=== PATIENT | female | born 1945 | race Caucasian/White ===

== ENCOUNTER 2016-10-10 11:29 | Observation (INO) | payer OTHER ==
--- NOTE | ~2016-10-10 | OR ---
Unit #: [id number] #: [id number] Patient: JAILYN DODSON [id number] [address] [place], [place] [address] [id number] I MR#: [id number] NAME: JAILYN DODSON ROOM: 329 Date of Procedure: 10/12/2016 Admission Date: 10/10/2016 Surgeon: Nii Rangel M.D. : 1945 Attending Physician: Isaiah Snider M.D. Primary Care Physician: Mariah Naranjo M.D. OPERATIVE REPORT PRIMARY CARE PHYSICIAN Mariah Naranjo M.D. PREOPERATIVE DIAGNOSES Nausea, vomiting, diarrhea, and abdominal pain as well as hematochezia. PROCEDURE PERFORMED Colonoscopy up to cecum and terminal ileum. POSTOPERATIVE DIAGNOSES The patient had a diminutive polyp in the proximal descending colon. This was removed using snare polypectomy; however, polyp was too small and was lost in suction. Otherwise, examination was normal up to cecum and terminal ileum. No diverticulosis nor any hemorrhoids were seen. The patient did not have any angiodysplasias. RECOMMENDATIONS The most likely etiology of the patient's presentation is indeed resolved gastroenteritis. No further intervention is indicated. She can be discharged home from GI standpoint on regular diet. SEDATION USED MAC. DESCRIPTION OF PROCEDURE Following detailed explanation of the potential risks and complications of a colonoscopy, namely perforation, bleeding, and complications related to sedation, the patient was brought to GI lab and laid in the left lateral decubitus position. A digital rectal examination was performed, which was normal. Lubricated tip of the Olympus video colonoscope was inserted through the anus and advanced under direct vision. The scope was advanced and passed up to sigmoid into descending colon. No diverticula were noted in this area. The scope tip was then navigated all the way up to cecum with visualization of the ileocecal valve and the appendiceal orifice. Preparation was excellent with good visualization and photodocumentation was obtained. Last few inches of terminal ileum also visualized after intubation of the ileocecal valve and appeared normal. Successive segments of the colonic mucosa were examined upon withdrawal and appeared unremarkable except for a single diminutive sessile polyp in the proximal descending colon. This was removed using snare polypectomy; however, polyp was lost in suction and could not be retrieved. No additional polyps noted. The patient did not have any mucosal abnormalities Unit #: [id number] #: [id number] Patient: JAILYN DODSON whatsoever. No diverticulosis was seen and no hemorrhoids were seen. The scope was then withdrawn. The patient returned to the recovery area. She tolerated the procedure without any postprocedure complications. Dictated by... Aneta Turpin/car TD: 10/12/2016 22:11 JOB #: [id number] CC: Renata Stewart M.D. OPERATIVE REPORT Page 1 of 1 X Nii Rangel MD X PROCEDURE OPERATIVE NOTE
--- NOTE | ~2016-10-10 | CT4 ---
[facility] A Service of [facility] RADIOLOGY TEXT RESULTS PATIENT: JAILYN DODSON LOCATION: [facility] 329- : 47 UNIT #: [id number] AGE: [address]: Isaiah Snider MD SEX: F ORDER DR: [id number] [facility] [address] [facility]. [place], [place] [address] [id number] I MR#: [id number] Acc #: [id number] NAME: JAILYN DODSON : 1945 SEX: F STUDY DATE/TIME: 10/10/2016 11:53 UNIT: C3A PCU ROOM: 329 STUDY DESCRIPTION: CT Abd and Pelv Wo Cont Attending Physician: Renata Stewart M.D. Ordering Physician: Antolin Whitlock M.D. Primary Care Physician: Mariah Naranjo M.D. MEDICAL IMAGING REPORT This report is preliminary unless electronic signature is present EXAM CT of the abdomen and pelvis without contrast INDICATION Diffuse abdominal pain, vomiting, diarrhea with blood in stool today. TECHNIQUE Axial CT images were obtained from the dome of the diaphragm through the symphysis pubis. No oral or intravenous contrast material was administered. This CT examination was performed with one or more of the following radiation dose reduction techniques: automatic exposure control, adjustment of mA and/or kV according to patient size, and iterative reconstruction. FINDINGS Images through the lung bases demonstrate some right basilar scarring and coronary artery calcifications. Patient is noted to have hepatomegaly with the liver measuring up to 16.3 cm in craniocaudal dimensions. The spleen contains some calcified granulomata. Stomach and proximal small bowel are within normal limits. Adrenal glands and kidneys appear unremarkable. Patient does have cholelithiasis. I do not see any definite gallbladder wall thickening or pericholecystic fluid to suggest acute cholecystitis. Pancreas is atrophic. There is no evidence of mechanical bowel obstruction. Uterus is surgically absent. Urinary bladder appears unremarkable. I can see the appendix and it is within normal limits. Review of bony windows demonstrates degenerative changes involving the lumbosacral spine, as well as changes of prior posterior lumbar spinal fusion. IMPRESSION [facility] A Service of [facility] RADIOLOGY TEXT RESULTS PATIENT: JAILYN DODSON LOCATION: [facility] 329-01 : 47 UNIT #: [id number] AGE: [address]: Isaiah Snider MD SEX: F ORDER DR: 1. Mild hepatomegaly with the liver measuring up to 16.3 cm in craniocaudal dimensions. 2. Cholelithiasis without convincing evidence of acute cholecystitis. 3. Changes of prior hysterectomy. 4. Appendix is visualized and is felt to be within normal limits. Dictated by... Lizbeth Carter M.D. THIS IS AN ELECTRONICALLY VERIFIED REPORT Lizbeth Carter M.D. at 10/13/2016 1:00 PM JESSICA/sangita TD: 10/11/2016 07:20 JOB #: [id number] MEDICAL IMAGING REPORT Page 1 of 1 COPY
--- NOTE | ~2016-10-10 | CO ---
Unit #: [id number] #: [id number] Patient: JAILYN DODSON [id number] [address] [address] [id number] I MR#: [id number] NAME: JAILYN DODSON ROOM: 329 Age: 71 Sex: F Admission Date: 10/10/2016 : 1945 Attending Physician: Renata Stewart M.D. Primary Care Physician: Mariah Naranjo M.D. Consultation Date: 10/11/2016 CONSULTATION REPORT PRIMARY CARE PHYSICIAN Mariah Naranjo M.D. REASON FOR CONSULTATION Nausea, vomiting, abdominal pain, diarrhea, and substantial hematochezia. HISTORY OF PRESENT ILLNESS Ms. Dodson is a 71-year-old white female, who is on long-term anticoagulation with Coumadin because of DVTs. The patient apparently got some fish they got from a restaurant and both she and her ate the fish and coleslaw. She apparently got significant nausea, vomiting, and diarrhea subsequently that has since continued. In addition, she had copious amounts of bright red blood per rectum and left-sided abdominal pain. Her apparently did not have any symptoms. She is still feeling nauseated, although the vomiting has stopped. There is no history of fever, chills, or rigors. No history of skin rash. PAST MEDICAL HISTORY Significant for history of DVTs, on anticoagulation with Coumadin; gastroesophageal reflux; anxiety; depression; history of MRSA infection following the knee surgery; hypertension; hyperlipidemia; and hypothyroidism. PAST SURGICAL HISTORY Included hysterectomy, lumbar fusion, vein stripping, left lower extremity surgery, and left knee surgery. Last upper endoscopy and colonoscopy was about 7 years ago. MEDICATIONS At home included warfarin as well as baclofen, levothyroxine, potassium, gabapentin, celecoxib, Advair, Zyrtec, aspirin, lisinopril, rosuvastatin, and hydrochlorothiazide. ALLERGIES She is allergic to tramadol and morphine. SOCIAL HISTORY The patient does not smoke or drink alcohol. Walks around with a cane. She lives with her . FAMILY HISTORY Mother having lung cancer. No family history of colon or pancreatic cancer or liver disease. Unit #: [id number] #: [id number] Patient: JAILYN DODSON REVIEW OF SYSTEMS Detailed review of organ systems does not reveal any recent weight loss. No history of fever, chills, or rigors. No history of headache, seizure, chest pain, or syncope. No history of cough, expectoration, or hemoptysis. No history of dysuria, hematuria, or pyuria. No history of focal seizures or extremity weakness. No history of skin rash, aphthous ulcer in the mouth, reactive arthritis. Rest of the review of organ system is unremarkable. PHYSICAL EXAMINATION GENERAL: She is alert and oriented, and appears comfortable. VITAL SIGNS: Stable with a temperature of 98.0, pulse 87 per minute, respiratory rate is 18, and blood pressure is 137/68. She weighs 240 pounds and this is close to her baseline weight. HEENT: She has no pallor, icterus, lymphadenopathy, or peripheral edema. CARDIOVASCULAR: Reveals normal heart sounds. No murmurs on auscultation. LUNGS: Reveal normal breath sounds. Good air entry. ABDOMEN: Soft, nontender, and obese. Liver and spleen are not palpable. Bowel sounds are normal. No area of rigidity, rebound, or guarding is felt. Hernial sites are also normal. DIAGNOSTIC STUDIES LABORATORY RESULTS: Lab evaluation shows a BUN of 23 and creatinine of 2.4, baseline creatinine is 1.0. CO2 is 20. Albumin and LFTs are normal. Blood glucose is 155. INR is 2.3. CBC shows a normal white count and platelet count and hemoglobin. IMAGING STUDIES: A CT scan of the abdomen is unremarkable. CLINICAL IMPRESSION The differential diagnosis here includes a gastroenteritis or food poisoning after eating bad fish versus ischemic colitis. The latter in view of substantial hematochezia and cramping in the lower left- sided abdomen. A diagnostic upper endoscopy is warranted to be done later today. If the upper endoscopy does not show any significant abnormalities, a colonoscopy performed tomorrow morning. The pros and cons of the procedure and potential risks and complications were discussed with the patient and she was reassured. Thank you for asking me to see this pleasant woman. I appreciate the consult. Dictated by.Aneta Walter/car TD: 10/11/2016 11:23 JOB #: [id number] CC: Aneta Chatman M.D. Unit #: [id number] #: [id number] Patient: JAILYN DODSON CONSULTATION REPORT Page 1 of 1 X Nii Rangel MD CONSULTATION REPORT
--- NOTE | ~2016-10-10 | DS ---
Unit #: [id number] #: [id number] Patient: JAILYN DODSON [id number] [address] [place], [place] [address] [id number] I MR#: [id number] NAME: JAILYN DODSON ROOM: 329 Age: 71 Sex: F Admission Date: 10/10/2016 : 1945 Discharge Date: 10/12/2016 Attending Physician: Isaiah Snider M.D. Primary Care Physician: Mariah Naranjo M.D. DISCHARGE SUMMARY REASON FOR ADMISSION Bright red blood per rectum, acute kidney injury, nausea, and vomiting. HISTORY OF PRESENT ILLNESS/HOSPITAL COURSE Patient is a very pleasant, 71-year-old female with underlying history of DVT, chronic anticoagulation with Coumadin, hypertension, GERD, hypothyroidism, anxiety, depression, and MRSA who presented to the emergency department for evaluation of above. She reported to have 10 bouts of nonbloody emesis as well as 5 bouts of bloody diarrhea. She was admitted after it was noted initial creatinine was elevated at 2.4 with GFR of 19. In regards to her acute kidney injury, consultation was placed to Dr. Solorzano and associates of nephrology services. She was maintained on appropriate IV fluids throughout hospital course. Today, at time of discharge, her creatinine now stands at 0.6 and likely at her baseline. Initial urinalysis was also positive; however, final urine culture did not show any acute bacterial growth. She did undergo a CT abdomen and pelvis on 10/10/2016 secondary to abdominal pain and vomiting. Final results did raise the possibility of cholelithiasis without convincing evidence of acute cholecystitis. There was no other acute process, which was noted. Subsequently, we placed consultation to Dr. Rangel of gastroenterology services. Patient initially underwent upper GI endoscopy, which showed normal findings. This was conducted on 10/11/2016. This morning, patient, on 10/12/2016, underwent colonoscopy, which showed a small polyp, which was snared, but there was no other acute process noted throughout the colon. Mild diverticulosis was noted, but there was no evidence of colitis or any other abnormality. Therefore, at this point in time, with her creatinine now being normal and GI workup is negative; patient will be discharged home in stable condition. Her hemoglobin at time of discharge is currently 11.1 and creatinine level is normal. At time of discharge, in regards to her blood pressure management, lisinopril will be discontinued. We will give her a prescription for Norvasc 5 mg p.o. every day. Her Celebrex and all other NSAID medications should be discontinued. This was reinforced with patient and she was advised to avoid all nephrotoxic medications. FINAL DISCHARGE DIAGNOSES 1. Acute kidney injury. Unit #: [id number] #: [id number] Patient: JAILYN DODSON 2. Viral gastroenteritis. 3. Intractable nausea/vomiting. 4. Abdominal pain. 5. 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 6. Hypertension. 7. Gastroesophageal reflux disease with normal esophagogastroduodenoscopy. 8. Hypothyroidism. 9. Anxiety. 10. Depression. 11. Remote history of methicillin resistant Staphylococcus aureus. DISCHARGE MEDICATIONS 1. Advair 250/50 one puff b.i.d. 2. Coumadin 5 mg p.o. every day. 3. Gabapentin 300 mg p.o. every day. 4. Zyrtec 10 mg p.o. every day. 5. Norvasc 5 mg p.o. every day. 6. Aspirin 81 mg p.o. every day. 7. Protonix 40 mg p.o. every day. 8. Potassium chloride 20 mEq p.o. every day. 9. Baclofen 20 mg p.o. b.i.d. 10. Synthroid 88 mcg p.o. every day. DISCHARGE CONDITION Stable. DISCHARGE DISPOSITION Home. DISCHARGE INSTRUCTIONS Follow up with PCP in 7-10 days. At that point in time, patient should have a repeat BMP and CBC. Dictated by... Isaiah Snider M.D. TEDDY/dai TD: 10/13/2016 08:26 JOB #: [id number] DISCHARGE SUMMARY Page 1 of 1 X Isaiah Snider MD X DISCHARGE SUMMARY
--- NOTE | ~2016-10-10 | CO ---
Unit #: [id number] #: [id number] Patient: JAILYN DODSON [id number] [address] [address] [id number] I MR#: [id number] NAME: JAILYN DODSON ROOM: 329 Age: 71 Sex: F Admission Date: 10/10/2016 : 1945 Attending Physician: Renata Stewart M.D. Primary Care Physician: Mariah Naranjo M.D. Consultation Date: 10/10/2016 CONSULTATION REPORT REASON FOR CONSULTATION Renal insufficiency. Thank you very much for asking us to see this patient in consultation. HISTORY OF PRESENT ILLNESS Ms. Jailyn Horan is a 71-year-old female, who has a history of hypertension, hypothyroidism, DVTs x2, who is on chronic Coumadin, who also has a history of arthritis on Celebrex, who presented here with several days of nausea, vomiting, abdominal pain, diarrhea, and some bloody stools. The patient was admitted and noted to have a BUN and creatinine of 23 and 2.4. Because of this, we were asked to see the patient. The patient was noted on 11/10 to have a creatinine of 0.8. She states she has never had any problems with her kidneys that she knows of. The patient is being admitted for possible GI bleed as well as abdominal pain. PAST MEDICAL HISTORY History of gastroenteritis; history of hypertension; history of hypothyroidism; history of DVT x2, on chronic Coumadin. History of knee surgery, back surgery, hysterectomy, anxiety, history of depression, history of nephrolithiasis, history of arthritis. She has a history of asthma. ALLERGIES Include tramadol. SOCIAL HISTORY She does not smoke or drink. MEDICATIONS At home included baclofen, Synthroid, lisinopril, KCl, gabapentin, Coumadin, Celebrex, Protonix, Advair, Zyrtec, aspirin. FAMILY HISTORY Noncontributory. REVIEW OF SYSTEMS She denies any fevers, chills, visual problems, sinus problems, cough, hemoptysis, sore throat, difficulty swallowing. No neck pain or neck stiffness. No chest pain, chest heaviness, or palpitations. No shortness of breath. Denies any urinary symptoms. She has occasional swelling, but none recently. She denies any recent seizures, strokes, or skin rashes or any new medication changes except for cholesterol medicine about a month Unit #: [id number] #: [id number] Patient: JAILYN DODSON. PHYSICAL EXAMINATION GENERAL: She is alert. VITAL SIGNS: Temperature is 97.6, pulse 84 to 100, blood pressure 84 to 103 over 40s to 48. HEENT: She is normocephalic and atraumatic. Pupils are equal, round, and reactive to light. Extraocular muscles are intact. Hearing appears to be normal. Mouth is clear. No erythema. No exudate. Mouth is dry. NECK: Supple. No adenopathy. CARDIAC: Has a regular rhythm without a rub. No S3 or S4. LUNGS: Has occasional wheeze on her left side, otherwise clear. ABDOMEN: Overweight. Bowel sounds positive. She has some tenderness in the epigastric area in the left lower quadrant. No sacral edema. EXTREMITIES: She has no lower extremity swelling. Her pulses are intact in lower extremities. JOINTS: No joint pain or joint swelling. SKIN: No rashes. NEUROLOGIC: Appears intact motor and sensory grossly. : Deferred. DIAGNOSTIC STUDIES LABORATORY RESULTS: Shows sodium 138, potassium 3.4, chloride is 102, bicarb is 20, BUN and creatinine of 23 and 2.4 with glucose of 155, magnesium is 1.5, calcium is 9.6. TSH is 5, INR is 2.7. Hemoglobin 14 down from 15, white count 8900, platelets 272,000. UA showed specific gravity of 1.02, 2+ protein, 2 to 5 rbc's, 25 to 50 wbc's, no bacteria. ASSESSMENT/PLAN Acute kidney injury. This is a lady who presumed to have normal kidney function, who presented here with acute renal failure certainly, probably multifactorial including volume depletion from nausea, vomiting, or diarrhea. She also may have some acute tubular necrosis secondary to decreased blood pressure. She also was on Celebrex, it could also be playing a role in renal failure. She does have some proteinuria as well and we will quantitate this. She has been on some lisinopril and certainly in the face of some volume depletion, this may also affect her to renal function. I agree with holding her TIFFANI, for now her Celebrex. We will continue IV fluids. She had a CT scan done which I am not sure what it showed yet, but we will not order renal ultrasound since the CT was done and we will follow. We will check again urine eosinophils have been ordered and check a protein to creatinine ratio, check an SPEP, check full set of electrolytes in the morning, and we will continue to follow. Currently, she is on a PPI and we will continue this for now unless her renal function continues to worsen. Dictated byAneta Bhandari/car TD: 10/11/2016 03:29 JOB #: [id number] Unit #: [id number] #: [id number] Patient: JAILYN DODSON CONSULTATION REPORT Page 1 of 1 X Oscar Solorzano MD X CONSULTATION REPORT
--- NOTE | ~2016-10-10 | HP ---
Unit #: [id number] #: [id number] Patient: JAILYN DODSON [id number] [address] [address] [id number] I MR#: [id number] NAME: JAILYN DODSON ROOM: 04754 Age: 71 Sex: F Admission Date: 10/10/2016 : 1945 Attending Physician: Renata Stewart M.D. Primary Care Physician: Mariah Naranjo M.D. HISTORY AND PHYSICAL CHIEF COMPLAINT Nausea, vomiting, and diarrhea. HISTORY OF PRESENT ILLNESS The patient is a 71-year-old female with past medical history of DVT, chronic anticoagulation with Coumadin, hypertension, GERD, hypothyroidism, anxiety, depression, MRSA, who presented to the emergency department for evaluation of the above. The patient states that she was in her usual state of health until the day prior to admission when she ate fish and slaw. Three hours later, she started having abdominal pain, vomiting and diarrhea. She reports more than 10 bouts of nonbloody emesis and around 5 bouts of bloody diarrhea. She states that she has had left-sided abdominal pain that she describes as "horrible." There are no exacerbating or alleviating factors. She has never had any similar pain. She has had chills but no documented fever. In the emergency department, initial pulse and blood pressure were 100 and 84/44 respectively. She was noted to be heme-positive. CT of the abdomen and pelvis was done and showed no acute abnormality. She is being admitted to [facility] for evaluation and further treatment. PAST MEDICAL HISTORY 1. Admission to [facility] 08/22 through 08/25/2011 for gastroenteritis and acute kidney injury. 2. Hypertension. 3. Hyperlipidemia. 4. Hypothyroidism. 5. DVT on chronic anticoagulation with Coumadin. 6. GERD. 7. Anxiety and depression. 8. History of MRSA following knee surgery. PAST SURGICAL HISTORY 1. Hysterectomy. 2. Lumbar fusion. 3. Vein stripping. 4. Left lower extremity surgery. 5. Left knee surgery. 6. EGD and colonoscopy (04/11/2010) showed small internal hemorrhoids. A single polyp in the sigmoid. EGD was completely normal. Pathology report from the that endoscopy procedure showed hyperplastic polyp and fragments of unremarkable duodenal mucosa. Unit #: [id number] #: [id number] Patient: JAILYN DODSON ALLERGIES 1. Morphine. 2. Tramadol. HOME MEDICATIONS 1. Baclofen. 2. Levothyroxine. 3. Potassium. 4. Gabapentin. 5. Warfarin. 6. Celecoxib. 7. Advair. 8. Zyrtec. 9. Aspirin. 10. Lisinopril. 11. Rosuvastatin. 12. Hydrochlorothiazide. SOCIAL HISTORY The patient lives with her . There is no tobacco or alcohol use. She walks with a cane. Her code status is FULL CODE. FAMILY HISTORY Notable for her mother having lung cancer. REVIEW OF SYSTEMS A complete review of systems is negative except as indicated in the HPI. PHYSICAL EXAMINATION VITAL SIGNS: Temperature 97.5, pulse 100, respirations 18, blood pressure 84/44, oxygen saturation 98% on room air. GENERAL: The patient is a female who is awake and alert in no acute distress. HEENT: Head is atraumatic. Mucous membranes are dry. NECK: Supple. Trachea is midline. LUNGS: Clear to auscultation bilaterally with no increased work of breathing. HEART: Regular rate and rhythm. ABDOMEN: Soft. She is tender to palpation in the left lower quadrant. Bowel sounds present in all four quadrants. RECTAL: Heme-positive per ER documentation. EXTREMITIES: Nontender with no pedal edema. NEUROLOGIC: Patient is awake and alert. She follows commands. PSYCHIATRIC: Mood and affect are normal. Patient is cooperative. SKIN OF EXAMINED AREAS: Warm and dry. DIAGNOSTIC STUDIES LABORATORY: Complete blood count notable for MCV of 78.9, hemoglobin 15. INR 2.7. Comprehensive metabolic panel notable for a potassium of 3.4, bicarb is 20, glucose 155, BUN 23, creatinine 2.4. Lipase 22. Urinalysis notable for 1+ leukocyte esterase, 2+ protein, 25-50 wbc's, no bacteria, many squamous cells. IMAGING: CT of the abdomen and pelvis shows mild hepatomegaly with cholelithiasis but no evidence of cholecystitis. ASSESSMENT Unit #: [id number] #: [id number] Patient: JAILYN DODSON The patient is a 71-year-old female with: 1. Abdominal pain. CT of the abdomen and pelvis is negative. 2. Nausea, vomiting, and diarrhea. 3. Gastrointestinal bleed with hemoglobin of 15. 4. Chronic anticoagulation with Coumadin. INR is 2.7 today. 5. History of DVT. 6. Acute kidney injury. The patient's creatinine was 0.8 on 11/26/2015, it is 2.4 today. 7. Mild hypokalemia. 8. Hypotension. The patient's initial blood pressure was 84/44. She received a 1 liter normal saline bolus and most recent blood pressure is 103/48. 9. Gastroesophageal reflux disease. 10. Hypothyroidism. 11. Anxiety and depression. 12. History of MRSA. 13. Hyperlipidemia. 14. Cholelithiasis with no evidence of cholecystitis. PLAN 1. Admit for observation to intermediate level. 2. Normal saline at 75 mL per hour. 3. Advance to clear liquid diet as tolerated. 4. Hemoglobin and hematocrit q.6 h. 5. Protonix. 6. Hold Coumadin. 7. Consult Dr. Rangel regarding GI bleed. 8. Check EKG and cardiac enzymes. 9. Urine sodium, creatinine and eosinophils. 10. Renal ultrasound. 11. Urine culture and sensitivity on urine in the lab. 12. Check CPK. 13. Strict I's and O's. 14. Hold nephrotic medications. 15. Consult Dr. Solorzano regarding acute kidney injury. 16. Replace potassium. 17. Check magnesium. 18. Monitor blood pressure closely. 19. TSH. 20. P.r.n. morphine. 21. P.r.n. Zofran. 22. Repeat labs in the morning including INR, magnesium and phosphorus. 23. Regarding code status, the patient is a FULL CODE. Dictated by Aneta Chatman/juan josé TD: 10/10/2016 16:05 JOB #: [id number] Unit #: [id number] #: [id number] Patient: JAILYN DODSON HISTORY AND PHYSICAL Page 1 of 1 X Renata Stewart MD HISTORY AND PHYSICAL
--- NOTE | ~2016-10-10 | EKG ---
PATIENT: JAILYN DODSON UNIT #: [id number] Ventricular Rate: 84 BPM Atrial Rate: 84 BPM P-R Interval: 164 ms QRS Duration: 92 ms Q-T Interval: 372 ms QTC Calculation(Bezet): 439 ms P Berg[place]: 80 degrees Calculated R Berg[place]: 81 degrees Calculated T Bergton: 107 degrees Diagnosis Line: Normal sinus rhythm Diagnosis Line: Biatrial enlargement Diagnosis Line: Nonspecific ST and T wave abnormality Diagnosis Line: Abnormal ECG Diagnosis Line: When compared with ECG of 01-MAY-2014 10:24, Diagnosis Line: Nonspecific T wave abnormality, worse in Lateral Diagnosis Line: leads Diagnosis Line: Confirmed by ALYSE ZAZUETA MD ([id number]) on Diagnosis Line: 10/14/2016 5:39:44 AM INTERPRETING MD: BIA
--- NOTE | ~2016-10-10 | US77 ---
[facility] A Service of [facility] & [facility] RADIOLOGY TEXT RESULTS PATIENT: JAILYN DODSON LOCATION: [facility] 329-01 : [birth year] UNIT #: [id number] AGE: [address]: Renata Stewart MD SEX: F ORDER DR: [id number] [facility] [address]. [place], [place] [address] [id number] I MR#: [id number] Acc #: [id number] NAME: JAILYN DODSON : 1945 SEX: F STUDY DATE/TIME: 10/10/2016 21:57 [facility] ROOM: [facility] STUDY DESCRIPTION: US Kidney Bilateral Complete Attending Physician: Renata Stewart M.D. Ordering Physician: Renata Stewart M.D. Primary Care Physician: Mariah Naranjo M.D. MEDICAL IMAGING REPORT This report is preliminary unless electronic signature is present EXAM Bilateral renal ultrasound INDICATIONS Acute kidney insufficiency GFR is 30, BUN 23 and creatinine is 1.7. FINDINGS The right kidney is 8.6 in length. There is no masses or hydronephrosis visible. The bladder is collapsed. The left kidney is 12 cm in length and appears normal. IMPRESSION Normal bilateral renal ultrasound. Dictated by... Malcolm Mazariegos M.D. THIS IS AN ELECTRONICALLY VERIFIED REPORT Malcolm Mazariegos M.D. at 10/11/2016 9:55 PM FEL/to TD: 10/11/2016 17:17 JOB #: [id number] MEDICAL IMAGING REPORT Page 1 of 1 COPY
--- NOTE | ~2016-10-10 | OR ---
Unit #: [id number] #: [id number] Patient: JAILYN DODSON [id number] [address] [place], [place] [address] [id number] MR#: [id number] NAME: JAILYN DODSON ROOM: 329 Date of Procedure: 10/11/2016 Admission Date: 10/10/2016 Surgeon: Nii Rangel M.D. : 1945 Attending Physician: Renata Stewart M.D. Primary Care Physician: Mariah Naranjo M.D. OPERATIVE REPORT PRIMARY CARE PHYSICIAN Mariah Naranjo M.D. PREOPERATIVE DIAGNOSES Nausea, vomiting, and abdominal pain. PROCEDURE PERFORMED Upper gastrointestinal endoscopy. POSTOPERATIVE DIAGNOSIS Completely normal examination up to third part of duodenum. RECOMMENDATIONS The patient will be started on clear liquid diet. A colonoscopy will be performed tomorrow in view of the fact that she has had substantial hematochezia and diarrhea, and left-sided abdominal pain. SEDATION USED MAC. DESCRIPTION OF PROCEDURE Following detailed explanation of the potential risks and complications of an upper endoscopy, namely perforation, bleeding, and complication related to sedation, the patient was brought to GI lab and laid in the left lateral decubitus position. Lubricated tip of the Olympus video upper endoscope was passed through the bite block into the proximal esophagus under direct vision. The entire esophageal mucosa was examined and appeared normal. Z-line was nicely demarcated, there being no esophagitis or hiatus hernia. The scope was then advanced into the gastric cavity and the latter was insufflated. Mucosa of the fundus, body, and antrum was examined and appeared unremarkable. Pylorus was intubated with visualization of the normal duodenal bulb and second and third part of the duodenum. Upon withdrawal and retroflexion, incisura, cardia, and greater curve were examined and no additional findings noted. The scope was then withdrawn in the distal esophagus. The entire esophageal mucosa was examined all the way up to pharynx. No additional findings noted. The patient tolerated the procedure without any postprocedure complications. Dictated by... Nii Rangel M.D. Unit #: [id number] #: [id number] Patient: JAILYN DODSON LUIS/car TD: 10/11/2016 15:19 JOB #: [id number] OPERATIVE REPORT Page 1 of 1 X Nii Rangel MD PROCEDURE OPERATIVE NOTE
[~2016-10-10 11:29] MED LIST: ADVAIR 100-501 EACH IH; ADVAIR 250-501 EACH IH; ADVAIR 2501 DISK W/D PO; ALBUTEROL17 GM; ALPRAZOLAM PO; ALPRAZOLAM0.25 MG PO; AMITRIPTYLINE H50 MG PO; AMITRYPTYLINE PO; ASPIRIN; ASPIRIN EC81 M1 PO; ASPIRIN81 M1 PO; BACLOFEN20 M1 PO; CALCIUM 500 + D1 TAB; CAPOZIDE PO; CELEBREX; CELEBREX PO; CELECOXIB200 M1 PO; CIPRO250 MG PO; CLARITIN10 MG PO; COUMADIN; COUMADIN PO; COUMADIN1 MG PO; COUMADIN4 MG PO; COUMADIN5 MG PO; COUMADIN7.5 MG PO; DARVOCET-N 1001 TAB; FISH OIL 1,0001 CAP; FLONASE 0.05% N16 G1; GABAPENTIN300 MG PO; GARLIC; HYDROCHLOROTH12.5 MG PO; HYDROCODON-ACE1 EAC7 PO; HYDROCODON-ACE1 EACH PO; HYDROCODONE; HYDROCODONE-APA1 T55 PO; HYZAAR; IRON325 ( 65 ) PO; KCL; KCL PO; LASIX; LEVOTHYROXINE88 MCG PO; LISINOPRIL-HCTZ1 T14 PO; LISINOPRIL20 MG PO; METAMUCIL0.52 G; MONTELUKAST SOD10 MG PO; NEURONTIN300 MG PO; NEXIUM; NORVASC; NORVASC PO; NYSTATIN1000 GM MC; POTASSIUM99 M3 PO; PRAVACHOL20 MG PO; PRAVASTATIN SOD20 MG PO; PROTONIX PO; RIFAMPIN300 MG PO; ROBAXIN 750750 MG PO; SIMVASTATIN10 MG PO; SINGULAIR PO; SYMBICORT INH; SYNTHROID; SYNTHROID PO; SYNTHROID0.1 MG PO; TERBINAFINE (L250 MG DOB; XANAX0.5 MG PO; ZESTORETIC 20/11 TAB PO; ZITHROMAX; ZOCOR20 MG PO; ZYRTEC; ZYRTEC10 M1 PO; ZYRTEC10 M2 PO
[2016-10-10 11:35] LABS: BASOPHIL% 0.1 % (0-2.5); EOSINOPHIL% 0.1 % (0.0-7.0); HEMATOCRIT 45.7 % (35.0-45.0); LYMPHOCYTE# 0.2 X10e3 (1.0-3.5); LYMPHOCYTE% 2.1 % (17.0-45.0); MEAN CELL VOLUME 78.9 FL (83-96); MEAN CORPUSCULAR HEMOGLOBIN 25.9 PG (28-34); MEAN CORPUSCULAR HGB CONC 32.9 g/dL (30-36); MEAN PLATELET VOLUME 7.8 FL (6.5-11.5); MONOCYTE# 0.5 X10e3 (0-1.0); MONOCYTE% 5.1 % (3.0-12.0); NEUTROPHIL# 8.2 X10e3 (1.5-7.1); NEUTROPHIL% 92.6 % (40-75); PLATELET COUNT 272 X10e3 (140-420); RED CELL DISTRIBUTION WIDTH 17.7 % (11.0-15.5); WHITE BLOOD COUNT 8.9 X10e3 (4.0-10.5)
[2016-10-10 11:37] LABS: DIFF IND NO
[2016-10-10 11:50] LABS: INR 2.7; PARTIAL THROMBOPLASTIN TIME 42.2 SECONDS (23.5-31.3); PROTHROMBIN TIME (PATIENT) 29.8 SECONDS (9.6-11.5)
[2016-10-10 12:07] LABS: ALBUMIN SERUM 4.4 g/dL (3.5-5.0); BILIRUBIN, DIRECT 0.2 mg/dL (0.0-0.2); BILIRUBIN,INDIRECT 1.1 mg/dL (0.0-0.9); BILIRUBIN,TOTAL 1.3 mg/dL (0.2-2.0); BUN/CREATININE RATIO 9.58; CALCIUM SERUM 9.6 mg/dL (8.4-10.2); CREATININE SERUM 2.4 mg/dL (0.6-1.4); GLOM FILT RATE Estimated 19.9 mL/min (>60); POTASSIUM 3.4 mmol/L (3.5-5.1); PROTEIN TOTAL SERUM 7.5 g/dL (6.0-8.3)
[2016-10-10] MEDS ORDERED: BACLOFEN20 M1 PO (12:18)
[2016-10-10] MEDS ORDERED: SYNTHROID88 MCG PO (12:18)
[2016-10-10] MEDS ORDERED: LISINOPRIL30 MG PO (12:19)
[2016-10-10] MEDS ORDERED: POTASSIUM CHLO10 MEQ PO (12:20)
[2016-10-10] MEDS ORDERED: GABAPENTIN300 M2 PO (12:20)
[2016-10-10] MEDS ORDERED: COUMADIN5 MG PO (12:21)
[2016-10-10] MEDS ORDERED: PANTOPRAZOLE SO40 MG PO (12:22)
[2016-10-10] MEDS ORDERED: CELEBREX100 MG PO (12:22)
[2016-10-10] MEDS ORDERED: ASPIRIN81 M2 PO (12:23)
[2016-10-10] MEDS ORDERED: ADVAIR 250-501 EACH INH (12:23)
[2016-10-10] MEDS ORDERED: ZYRTEC10 M2 PO (12:23)
[2016-10-10 13:37] LABS: URINE SOURCE CLEAN CATCH
[2016-10-10 13:51] LABS: URINE APPEARANCE TURBID; URINE BLOOD NEG (NEG); URINE COLOR DK YELLOW; URINE GLUCOSE NEG (NEG); URINE KETONE TRACE (NEG); URINE LEUKOCYTE ESTERASE 1+ (NEG); URINE NITRATE NEG (NEG); URINE PROTEIN 2+ (NEG); URINE SPECIFIC GRAVITY 1.021 (1.003-1.035)
[2016-10-10 13:54] LABS: CULTURE INDICATED? YES; URINE BACTERIA AUWI NEG (NEGATIVE); URINE SQUAMOUS EPITHELIAL CELL MANY /[HPF]; UWBCS1 AUWI 25-50 (0-5)
[2016-10-10 13:55] LABS: U HYALINE CASTS AUWI 0-2 /[LPF]; URINE BILIRUBIN NEG (NEG)
[2016-10-10 15:32] LABS: HEMATOCRIT 43.3 % (35.0-45.0)
[2016-10-10 16:04] LABS: CREATININE,RANDOM URINE 306 mg/dL; SODIUM URINE RANDOM 31 mmol/L
[2016-10-10 16:35] LABS: %MB 2.7 % (0.0-4.0); MB 3.4 ng/ml
[2016-10-10 18:49] LABS: CREATININE SERUM 1.7 mg/dL (0.6-1.4); GLOM FILT RATE Estimated 30.2 mL/min (>60)
[2016-10-10 23:02] LABS: HEMATOCRIT 43.1 % (35.0-45.0); HEMOGLOBIN 14.2 gm/dL (12.0-16.0)
[2016-10-10 23:40] LABS: %MB 2.5 % (0.0-4.0); MB 3.6 ng/ml
[2016-10-11 04:11] LABS: MEAN CELL VOLUME 79.3 FL (83-96); MEAN CORPUSCULAR HEMOGLOBIN 25.9 PG (28-34); MEAN CORPUSCULAR HGB CONC 32.7 g/dL (30-36); RED BLOOD COUNT 5.04 X10e (3.90-5.30); RED CELL DISTRIBUTION WIDTH 17.7 % (11.0-15.5); WHITE BLOOD COUNT 8.3 X10e3 (4.0-10.5)
[2016-10-11 04:25] LABS: INR 2.3; PROTHROMBIN TIME (PATIENT) 24.8 SECONDS (9.6-11.5)
[2016-10-11 04:56] LABS: ALBUMIN SERUM 3.5 g/dL (3.5-5.0); CALCIUM SERUM 8.6 mg/dL (8.4-10.2); GLOM FILT RATE Estimated 57.5 mL/min (>60); MAGNESIUM 1.9 mg/dL (1.6-3.0); PHOSPHOROUS 2.2 mg/dL (2.5-4.6); POTASSIUM 3.5 mmol/L (3.5-5.1); PROTEIN TOTAL SERUM 6.1 g/dL (6.0-8.3)
[2016-10-11 05:16] LABS: MB 3.9 ng/ml
[2016-10-11 23:52] LABS: HEMATOCRIT 36.1 % (35.0-45.0); HEMOGLOBIN 11.8 gm/dL (12.0-16.0)
[2016-10-12 05:54] LABS: HEMATOCRIT 33.8 % (35.0-45.0); HEMOGLOBIN 11.1 gm/dL (12.0-16.0); MEAN CELL VOLUME 78.8 FL (83-96); MEAN CORPUSCULAR HEMOGLOBIN 25.8 PG (28-34); MEAN CORPUSCULAR HGB CONC 32.7 g/dL (30-36); MEAN PLATELET VOLUME 7.3 FL (6.5-11.5); RED BLOOD COUNT 4.29 X10e (3.90-5.30); RED CELL DISTRIBUTION WIDTH 17.8 % (11.0-15.5); WHITE BLOOD COUNT 5.3 X10e3 (4.0-10.5)
[2016-10-12 06:04] LABS: INR 1.4; PROTHROMBIN TIME (PATIENT) 15.1 SECONDS (9.6-11.5)
[2016-10-12 07:18] LABS: ALBUMIN SERUM 3.1 g/dL (3.5-5.0); BILIRUBIN,TOTAL 0.6 mg/dL (0.2-2.0); CALCIUM SERUM 8.5 mg/dL (8.4-10.2); CREATININE SERUM 0.6 mg/dL (0.6-1.4); MAGNESIUM 1.8 mg/dL (1.6-3.0); PHOSPHOROUS 1.8 mg/dL (2.5-4.6); POTASSIUM 3.7 mmol/L (3.5-5.1); PROTEIN TOTAL SERUM 5.3 g/dL (6.0-8.3)
[2016-10-12] MEDS ORDERED: GABAPENTIN300 MG PO (11:00)
[2016-10-12] MEDS ORDERED: NORVASC PO (11:03)
[2016-10-12 12:45] LABS: HEMATOCRIT 36.6 % (35.0-45.0); HEMOGLOBIN 12.1 gm/dL (12.0-16.0)
== END 2016-10-12 14:14 | disposition home or self-care (01) ==
LOC: CED 11:29 → CEDOF 14:50 → C3A PCU 15:05
PROVIDERS: Emergency Medicine; Family Medicine; Internal Medicine Gastroenterology; Internal Medicine Nephrology
DX: N17.9 Acute kidney failure, unspecified (principal); A08.4 Viral intestinal infection, unspecified; Z86.718 Personal history of other venous thrombosis and embolism; Z79.01 Long term (current) use of anticoagulants; K92.1 Melena; D12.4 Benign neoplasm of descending colon; E87.6 Hypokalemia; E03.9 Hypothyroidism, unspecified; K21.9 Gastro-esophageal reflux disease without esophagitis; F41.8 Other specified anxiety disorders; E78.5 Hyperlipidemia, unspecified; Z86.14 Personal history of Methicillin resistant Staphylococcus aureus infection; K80.20 Calculus of gallbladder without cholecystitis without obstruction; Z79.82 Long term (current) use of aspirin; Z90.710 Acquired absence of both cervix and uterus; Z88.5 Allergy status to narcotic agent; Z98.1 Arthrodesis status
CPT/HCPCS: 36415; 36430; 74176; 76770; 80048; 80053; 80076; 81003; 82550; 82553; 82565; 82570; 83690; 83735; 84100; 84156; 84300; 84443; 84484; 85014; 85018; 85025; 85027; 85610; 85730; 86334; 86900; 86901; 87086; 89190; 93005; 94640; 94664; 94760; 96361; 96374; 96375; 96376; 99291; C9113; G0378; J2175; J2250; J2270; J2405; J3475; P9059